=== PATIENT | female | born 1975 | race American Indian/Alaskan Native ===

== ENCOUNTER 2021-04-03 09:08 | Day surgery (SDC) | payer OTHER ==
[~2021-04-03 09:08] MED LIST: IOHEXOL 300 MG/ML 50ML IV ONE; WATER FOR IRRIG STERILE 2000 ML IR ONE
--- NOTE | 2021-04-03 10:29 | Anesthesia Consultation ---
Anesthesia Consult and Med Hx Date of service: 04/03/21 - Airway Anesthetic Teeth Evaluation: Poor (3 broken teeth, none loose) ROM Head & Neck: Adequate Mental/Hyoid Distance: Adequate Mallampati Class: Class II Intubation Access Assessment: Probably Good - Pre-Operative Health Status ASA Pre-Surgery Classification: ASA2 Proposed Anesthetic Plan: General - Pulmonary Hx Smoking: Yes (1/2 PPD X 20 YRS) Hx Sleep Apnea: No (GILBERT PRE SCREEN LOW RISK) - Cardiovascular System Hx Hypertension: Yes (X 10 YRS) - Central Nervous System Hx Psychiatric Problems: Yes - Endocrine Hx Renal Disease: Yes (urine incontenence) - Other Systems Hx Substance Use: Yes (MARIJUANA 2-4X PER DAY, last time 04/02/21) Hx Cancer: No
--- NOTE | 2021-04-03 10:29 | Anesthesia Day of Surgery ---
Anesthesia Day of Surgery - Day of Surgery Patient Examined: Yes Patient H&P Reviewed: Yes Patient is NPO: Yes
[2021-04-03] MEDS ORDERED: MIDAZOLAM 2 MG/2 ML INJ IV NR (11:00)
[2021-04-03] MEDS ORDERED: ceFAZolin/Water 2 GM/20 ML 2 GM/20 ML SYRINGE IV NR (11:00)
[2021-04-03] MEDS ORDERED: LACTATED RINGERS 1,000 ML IV SCH (11:00)
[2021-04-03] MEDS ORDERED: FAMOTIDINE 20 MG/2 ML INJ IV NR (11:00)
[2021-04-03] MEDS ORDERED: propofoL 200 MG/20 ML VIAL IV ONE ×2 (11:37→12:15)
[2021-04-03] MEDS ORDERED: HYDROmorphone 1 MG/1 ML INJ ONE (11:37)
[2021-04-03] MEDS ORDERED: ONDANSETRON 4 MG/2 ML INJ IV PRN (11:40)
[2021-04-03] MEDS ORDERED: HYDROmorphone 1 MG/1 ML INJ IV PRN ×2 (11:40)
[2021-04-03] MEDS ORDERED: LIDOCAINE MPF (2%) 20 MG/1 ML VIAL 5 ML ONE ×2 (11:59→12:13)
[2021-04-03] MEDS ORDERED: ONDANSETRON 4 MG/2 ML INJ ONE (12:13)
[2021-04-03] MEDS ORDERED: dexAMETHasone 20 MG/5 ML VIAL ONE (12:13)
[2021-04-03] MEDS ORDERED: WATER FOR IRRIG STERILE 2000 ML IR ONE (12:25)
[2021-04-03] MEDS ORDERED: IOHEXOL 300 MG/ML 50ML IV ONE (12:25)
--- NOTE | 2021-04-03 12:38 | Short Stay Summary ---
Short Stay Documentation Date of service: 04/03/21 - History H&P: obtained from office - Allergies and Medications Current Medications: Allergies No Known Allergies Allergy (Verified 03/29/21 15:18) Home Medications Medication Instructions Recorded Confirmed Last Taken Type Ibuprofen [Motrin] 600 mg PO Q8H PRN 03/29/21 04/03/21 03/31/21 History Lisinopril/Hydrochlorothiazide 1 each PO DAILY 03/29/21 04/03/21 04/02/21 His tory [Zestoretic 10-12.5 mg Tablet] Simvastatin 20 mg PO DAILY 03/29/21 04/03/21 03/31/21 History Active Medications Famotidine (Famotidine 20 Mg/2 Ml Inj) 20 mg IV PREOP NR Stop: 04/03/21 13:00 Hydromorphone HCl (Hydromorphone 1 Mg/1 Ml Inj) 0.25 mg IV Q10MIN PRN PRN Reason: Pain, Moderate (4-6) Stop: 04/04/21 11:39 Hydromorphone HCl (Hydromorphone 1 Mg/1 Ml Inj) 0.5 mg IV Q10MIN PRN PRN Reason: Pain , Severe (7-10) Stop: 04/04/21 11:39 Lactated Ringer's (Lactated Ringers) 1,000 mls @ 100 mls/hr IV DIRECT JOZEF Last Admin: 04/03/21 10:30 Dose: 100 mls/hr Cefazolin Sodium (Ancef/Sterile Water 2 Gm/20 Ml) 2 gm in 20 mls @ 80 mls/hr IV PREOP NR; Protocol Stop: 04/03/21 21:00 Midazolam HCl (Midazolam 2 Mg/2 Ml Inj) 2 mg IV PREOP NR Stop: 04/03/21 23:59 Ondansetron HCl (Ondansetron 4 Mg/2 Ml Inj) 4 mg IV ONCE PRN PRN Reason: Nausea And Vomiting - Brief post op/procedure progress note Date of procedure: 04/03/21 Pre-op diagnosis: recurrent uti Post-op diagnosis: same Procedure: cysto, rpg, hydrodistention (450cc) Anesthesia: GETA Surgeon: CARLITO MARSHALL Condition: stable - Hospital course Hospital course: macrobid & norco on chart - Disposition Condition at discharge: Stable Disposition: HOME / SELF CARE / HOMELESS Short Stay Discharge Plan Follow up with: ARPIT SEQUEIRA NP-C [Primary Care Provider] - 7 Days
--- NOTE | 2021-04-03 13:08 | Operative Report ---
DATE OF SURGERY: 04/03/2021 PREOPERATIVE DIAGNOSES: Recurrent urinary tract infection, microscopic hematuria. POSTOPERATIVE DIAGNOSES: Recurrent urinary tract infection, microscopic hematuria. PROCEDURES: Cystoscopy, bilateral retrograde pyelograms, hydrodistention. SURGEON: Marcus Mclean MD ANESTHESIA: General. ESTIMATED BLOOD LOSS: Minimal. FLUIDS: Crystalloid. COMPLICATIONS: No complications. INDICATIONS: This patient is a 45-year-old female, previously diagnosed with interstitial cystitis, has been on [place] in the past. She relocated from [place] and presents for intervention. She has some microscopic hematuria. She also has a history of smoking. She presents now for surgical intervention as well as she has mixed urinary incontinence and 4 kids delivered vaginally. DESCRIPTION OF PROCEDURE: The patient was taken to the operative suite, placed in a supine position. After adequate general anesthesia, placed in the dorsal lithotomy position, prepped and draped in a sterile fashion. Pancystourethroscopy was performed with a 22-Tu[place] Storz cystoscope. No bladder pathology. Both ureteral orifices in normal position. No stones or tumors could be appreciated. Bilateral retrograde pyelograms were obtained with an 8-Tu[place]uan Calvert catheter and 8 mL of contrast. No filling defects or obstruction. Hydrodistention to capacity of 450 mL. No petechia hemorrhage could be appreciated. Tolerated the procedure well. Bladder was drained, extubated and taken to recovery room. She will go home on Macrobid and [place]. TID: [id number] RECEIPT: [id number]/LUZMA
--- NOTE | 2021-04-03 13:31 | Fluoroscopy Report ---
FLUOROSCOPY RETROGRADE UROGRAPHY HISTORY: Urinary incontinence FINDINGS: Fluoroscopy was provided by radiology during retrograde urography by the urologist. There i s normal filling of both renal collecting systems. No filling defect or abnormal dilatation is identi fied. IMPRESSION: Unremarkable bilateral retrograde pyelograms Fluoroscopy time: 0.2 minutes Fluoroscopic images: 10 Signer Name: Yevgeniy Nassar Jr, MD Signed: 04/03/2021 1:27 PM Workstation Name: [id number]
--- NOTE | 2021-04-03 17:37 | Post Anesthesia Evaluation ---
- Post Anesthesia Evaluation Patient Participated: Yes Airway Patent: Yes Stable Respiratory Function: Yes Nausea/Vomiting: No Temp > 96.8F: Yes Pain Manageable: Yes Adequeate Hydration: Yes Anesthesia Complications: No Block Receding Appropriately: Not Applicable Patient on Ventilator: No
[2021-04-03 19:41] VITALS: BP 121/74
== END 2021-04-03 14:00 | disposition home or self-care (01) ==
LOC: OR 09:08
PROVIDERS: ATTEND Urology
DX: R31.29 Other microscopic hematuria (principal); N39.0 Urinary tract infection, site not specified; I10 Essential (primary) hypertension; F17.210 Nicotine dependence, cigarettes, uncomplicated; Z79.899 Other long term (current) drug therapy; Z98.890 Other specified postprocedural states
CPT/HCPCS: 36415; 52005; 74420; 81025; 84132; J0690; J1100; J1170; J2250; J2405; J2704; J3490; J7120; Q9967